=== PATIENT | female | born 1935 | race Caucasian/White ===

== ENCOUNTER 2016-12-09 08:52 | Outpatient (CLI) | payer MEDICARE ==
[2016-01-07 11:37] VITALS: O2SAT 97
== END 2016-12-09 08:53 | disposition home or self-care (01) | DRG 566 ==
LOC: CONVCARE 08:52
PROVIDERS: ATTEND Orthopaedic Surgery
DX: Z96.651 Presence of right artificial knee joint (principal)
CPT/HCPCS: 73562

== ENCOUNTER 2017-11-11 09:59 | Outpatient (CLI) | payer MEDICARE, MEDICAID ==
[2016-01-07 11:37] VITALS: O2SAT 97
== END 2017-11-11 10:00 | disposition home or self-care (01) | DRG 556 ==
LOC: CONVCARE 09:59
PROVIDERS: ATTEND Orthopaedic Surgery
DX: M25.562 Pain in left knee (principal); M17.12 Unilateral primary osteoarthritis, left knee
CPT/HCPCS: 73564

== ENCOUNTER 2018-02-16 05:20 | Inpatient (IN) | payer MEDICARE, MEDICAID ==
[2018-02-16] MEDS ORDERED: LACTATED RINGERS 1,000 ML IV ONE (06:00)
[2018-02-16] MEDS ORDERED: SCOPOLAMINE 1.5MG PATCH TD SCH (06:00)
[2018-02-16] MEDS ORDERED: LACTATED RINGERS 1,000 ML IV SCH (07:00)
[2018-02-16] MEDS ORDERED: ONDANSETRON HCL 4 MG/2 ML SOL ONE (07:22)
[2018-02-16] MEDS ORDERED: PROPOFOL 500 MG/50 ML EMU IV ONE ×2 (07:22→09:06)
[2018-02-16] MEDS ORDERED: FENTANYL 100MCG/2ML SOL ONE (07:23)
[2018-02-16] MEDS ORDERED: CEFAZOLIN SODIUM 1 GM PDS ONE ×3 (07:25→23:39)
[2018-02-16] MEDS ORDERED: TRANEXAMIC ACID 100 MG/ML SOL ONE (07:25)
[2018-02-16] MEDS ORDERED: SODIUM CHLORIDE 20 ML 20 ML ONE (07:25)
[2018-02-16] MEDS ORDERED: BUPIVACAINE/EPI 0.5% 10 ML SOL INFIL ONE (07:52)
[2018-02-16] MEDS ORDERED: MIDAZOLAM 2 MG/2 ML SOL ONE (08:06)
[2018-02-16] MEDS ORDERED: CEFAZOLIN SODIUM 1 GM PDS IV ONE (08:28)
[2018-02-16] MEDS: BUPIVACAINE LIPOSOME 20 ML SUS ONE ×2 (09:10→09:40)
[2018-02-16] MEDS ORDERED: FLEET ENEMA PR PRN (09:47)
[2018-02-16] MEDS ORDERED: ONDANSETRON HCL 4 MG/2 ML SOL IV PRN (09:47)
[2018-02-16] MEDS ORDERED: MAGNESIUM HYDROXIDE 30 ML SUS PO PRN (09:47)
[2018-02-16] MEDS ORDERED: SODIUM CHLORIDE 0.9% 500 ML 500 ML IV PRN (09:47)
[2018-02-16] MEDS ORDERED: ALUMINUM/MAGNESIUM 30 ML SUS PO PRN (09:47)
[2018-02-16] MEDS ORDERED: DIPHENHYDRAMINE 25 MG CAP PO PRN (09:47)
[2018-02-16] MEDS ORDERED: BISACODYL 10 MG SUP PR PRN (09:47)
[2018-02-16] MEDS ORDERED: MORPHINE SULFATE 10 MG/ML SOL IV PRN (09:47)
[2018-02-16] MEDS: LACTATED RINGERS 1,000 ML IV SCH ×2 (11:15→18:23)
[2018-02-16] MEDS: SODIUM CHLORIDE 0.9% FLUSH 10 ML SOL IV SCH ×2 (12:10→18:23)
[2018-02-16] MEDS: APAP/HYDROCODONE 325/5 TAB PO PRN ×4 (12:19→23:29)
[2018-02-16] MEDS: DIAZEPAM 5 MG TAB PO PRN (13:29)
[2018-02-16] MEDS ORDERED: CEFAZOLIN SODIUM 1 GM PDS 2 GM in SODIUM CHLORIDE 0.9% 100 ML 100 ML IV SCH (15:50)
[2018-02-16] MEDS ORDERED: SODIUM CHLORIDE 0.9% 100 ML 100 ML IV ONE ×2 (16:26→23:39)
[2018-02-16] MEDS: CEFAZOLIN SODIUM 1 GM PDS 2 GM in SODIUM CHLORIDE 0.9% 100 ML 100 ML IV SCH (16:36)
[2018-02-16] MEDS: ONDANSETRON 4 MG ODT BU PRN (16:38)
[2018-02-16] MEDS: METOPROLOL SUCCINATE 50 MG ER TAB PO SCH (20:52)
[2018-02-16] MEDS: SENNOSIDES A AND B 8.6 MG TAB PO SCH (20:52)
[2018-02-17] MEDS: CEFAZOLIN SODIUM 1 GM PDS 2 GM in SODIUM CHLORIDE 0.9% 100 ML 100 ML IV SCH (00:05)
[2018-02-17] MEDS: APAP/HYDROCODONE 325/5 TAB PO PRN ×6 (00:09→23:05)
[2018-02-17] MEDS: DIAZEPAM 5 MG TAB PO PRN ×2 (00:09→14:04)
[2018-02-17] MEDS: SODIUM CHLORIDE 0.9% FLUSH 10 ML SOL IV SCH ×3 (01:55→20:24)
[2018-02-17] MEDS: LACTATED RINGERS 1,000 ML IV SCH (04:49)
[2018-02-17 07:13] LABS: HEMOGLOBIN 10.7 gm/dl (12.0-15.5); MEAN CORPUSCULAR HGB CONC 33.8 gm/dl (32.0-36.0)
[2018-02-17] MEDS: RIVAROXABAN 10 MG TAB PO SCH (08:23)
[2018-02-17] MEDS ORDERED: AMLODIPINE 5 MG TAB PO SCH (09:00)
[2018-02-17] MEDS: SENNOSIDES A AND B 8.6 MG TAB PO SCH (20:24)
[2018-02-17] MEDS: METOPROLOL SUCCINATE 50 MG ER TAB PO SCH (20:25)
[2018-02-18] MEDS: APAP/HYDROCODONE 325/5 TAB PO PRN ×5 (03:25→20:19)
[2018-02-18 07:39] LABS: HEMOGLOBIN 9.6 gm/dl (12.0-15.5); MEAN CORPUSCULAR HEMOGLOBIN 30.5 pg (27.0-32.0); MEAN CORPUSCULAR HGB CONC 33.4 gm/dl (32.0-36.0)
[2018-02-18] MEDS: RIVAROXABAN 10 MG TAB PO SCH (08:37)
[2018-02-18] MEDS: DIAZEPAM 5 MG TAB PO PRN ×2 (08:38→19:25)
[2018-02-18] MEDS ORDERED: AMLODIPINE 5 MG TAB ONE (11:18)
[2018-02-18] MEDS: AMLODIPINE 5 MG TAB PO SCH (11:24)
[2018-02-18] MEDS: METOPROLOL SUCCINATE 50 MG ER TAB PO SCH (20:16)
[2018-02-18] MEDS: SENNOSIDES A AND B 8.6 MG TAB PO SCH (20:16)
[2018-02-19] MEDS: APAP/HYDROCODONE 325/5 TAB PO PRN ×5 (00:30→21:12)
[2018-02-19 07:30] LABS: HEMOGLOBIN 9.2 gm/dl (12.0-15.5); MEAN CORPUSCULAR HEMOGLOBIN 30.4 pg (27.0-32.0); MEAN CORPUSCULAR HGB CONC 33.4 gm/dl (32.0-36.0)
[2018-02-19] MEDS: AMLODIPINE 5 MG TAB PO SCH (09:26)
[2018-02-19] MEDS: RIVAROXABAN 10 MG TAB PO SCH (09:26)
[2018-02-19] MEDS: ONDANSETRON 4 MG ODT BU PRN (09:53)
[2018-02-19] MEDS: DIAZEPAM 5 MG TAB PO PRN (18:34)
[2018-02-19] MEDS: SENNOSIDES A AND B 8.6 MG TAB PO SCH (21:13)
[2018-02-19] MEDS: METOPROLOL SUCCINATE 50 MG ER TAB PO SCH (21:13)
[2018-02-20] MEDS: APAP/HYDROCODONE 325/5 TAB PO PRN ×3 (01:15→10:11)
[2018-02-20 07:31] LABS: CALCIUM 7.7 mg/dl (8.5-10.1); CARBON DIOXIDE 29.6 mEq/L (21-32); CREATININE 0.71 mg/dl (0.60-1.00); POTASSIUM 3.9 mMol/L (3.5-5.1)
[2018-02-20 07:37] LABS: BASOPHILS % (AUTO) 1 % (0-3); EOSINOPHILS % (AUTO) 3 % (0-9); HEMATOCRIT 28 % (35-47); HEMOGLOBIN 9.1 gm/dl (12.0-15.5); LYMPHOCYTES % (AUTO) 29.1 % (10-50); MEAN CORPUSCULAR HGB CONC 32.7 gm/dl (32.0-36.0); MEAN CORPUSCULAR VOLUME 92 fL (81-99); MONOCYTES % (AUTO) 6.9 % (0-12); NEUTROPHILS % (AUTO) 60.3 % (37-80)
[2018-02-20 08:16] VITALS: BP 120/70; PULSE 77; RESP 16; O2SAT 99
[2018-02-20] MEDS: RIVAROXABAN 10 MG TAB PO SCH (08:17)
[2018-02-20] MEDS: AMLODIPINE 5 MG TAB PO SCH (08:18)
[2018-02-20 09:21] VITALS: TEMP 98.8
== END 2018-02-20 13:05 | disposition swing bed (61) | DRG 517 ==
LOC: ACUTE CARE 05:20 → UNDOADMIN 05:20 → ACUTE CARE 06:31 → UNDOADMIN 06:31
PROVIDERS: ADMIT Orthopaedic Surgery; ATTEND Orthopaedic Surgery
PROC: 0SUD09C Supplement Left Knee Joint with Liner, Patellar Surface, Open Approach (ICD-10-PCS; 2018-02-16)
PROC: F01ZDFZ Gait and/or Balance Assessment using Assistive, Adaptive, Supportive or Protective Equipment (ICD-10-PCS; 2018-02-16)
PROC: F01ZBFZ Bed Mobility Assessment using Assistive, Adaptive, Supportive or Protective Equipment (ICD-10-PCS; 2018-02-16)
PROC: 0SUU09Z Supplement Left Knee Joint, Femoral Surface with Liner, Open Approach (ICD-10-PCS; principal; 2018-02-16 08:00)
PROC: F02Z1ZZ Dressing Assessment (ICD-10-PCS; 2018-02-17)
PROC: F02Z3ZZ Grooming/Personal Hygiene Assessment (ICD-10-PCS; 2018-02-17)
DX: M17.12 Unilateral primary osteoarthritis, left knee (principal); I10 Essential (primary) hypertension; Z96.652 Presence of left artificial knee joint
CPT/HCPCS: 36415; 51798; 73560; 80048; 85025; 85027; 94150; 99070; J0690; J2250; J2270; J2405; J3010; A6232; A9270-GY; J2704; J3490; Q3014

== ENCOUNTER 2018-02-20 12:14 | Inpatient (IN) | payer MEDICARE, MEDICAID ==
[2018-02-20] MEDS ORDERED: BISACODYL 5 MG TAB ECT PO ONE (14:03)
[2018-02-20] MEDS: APAP/HYDROCODONE 325/5 TAB PO PRN ×2 (14:54→20:57)
[2018-02-20] MEDS: ONDANSETRON 4 MG ODT BU PRN (17:43)
[2018-02-20] MEDS: METOPROLOL SUCCINATE 50 MG ER TAB PO SCH (20:57)
[2018-02-21] MEDS: APAP/HYDROCODONE 325/5 TAB PO PRN ×5 (04:57→20:40)
[2018-02-21] MEDS: AMLODIPINE 5 MG TAB PO SCH (08:27)
[2018-02-21] MEDS: RIVAROXABAN 10 MG TAB PO SCH (08:27)
[2018-02-21 11:12] VITALS: TEMP 98.2
[2018-02-21] MEDS: METOPROLOL SUCCINATE 50 MG ER TAB PO SCH (20:18)
[2018-02-22] MEDS: APAP/HYDROCODONE 325/5 TAB PO PRN ×6 (01:20→20:11)
[2018-02-22] MEDS: AMLODIPINE 5 MG TAB PO SCH (08:59)
[2018-02-22] MEDS: RIVAROXABAN 10 MG TAB PO SCH (08:59)
[2018-02-22] MEDS ORDERED: BISACODYL 5 MG TAB ECT PO ONE (09:00)
[2018-02-22] MEDS: POLYETHYLENE GLYCOL 17 GM/1 TBS PDS PO SCH (09:55)
[2018-02-22] MEDS ORDERED: FLEET ENEMA PR PRN (14:31)
[2018-02-22] MEDS: SENNOSIDES A AND B 8.6 MG TAB PO SCH (20:11)
[2018-02-22] MEDS: METOPROLOL SUCCINATE 50 MG ER TAB PO SCH (20:11)
[2018-02-23] MEDS: APAP/HYDROCODONE 325/5 TAB PO PRN ×3 (00:08→08:45)
[2018-02-23] MEDS: ONDANSETRON 4 MG ODT BU PRN ×2 (03:05→09:07)
[2018-02-23] MEDS: POLYETHYLENE GLYCOL 17 GM/1 TBS PDS PO SCH (08:35)
[2018-02-23] MEDS: RIVAROXABAN 10 MG TAB PO SCH (08:35)
[2018-02-23] MEDS: SENNOSIDES A AND B 8.6 MG TAB PO SCH (08:35)
[2018-02-23] MEDS: AMLODIPINE 5 MG TAB PO SCH (08:35)
[2018-02-23 08:38] VITALS: BP 116/68; PULSE 74; RESP 18; O2SAT 96
== END 2018-02-23 10:55 | disposition home or self-care (01) | DRG 561 ==
LOC: ACUTE CARE 13:10
PROVIDERS: ADMIT Family Medicine; ATTEND Family Medicine
PROC: F01ZDFZ Gait and/or Balance Assessment using Assistive, Adaptive, Supportive or Protective Equipment (ICD-10-PCS; principal; 2018-02-20)
PROC: F01ZBZZ Bed Mobility Assessment (ICD-10-PCS; 2018-02-20)
PROC: F01ZCZZ Transfer Assessment (ICD-10-PCS; 2018-02-20)
PROC: F02Z1ZZ Dressing Assessment (ICD-10-PCS; 2018-02-21)
PROC: F02Z3ZZ Grooming/Personal Hygiene Assessment (ICD-10-PCS; 2018-02-21)
PROC: F02Z0ZZ Bathing/Showering Assessment (ICD-10-PCS; 2018-02-21)
DX: Z47.1 Aftercare following joint replacement surgery (principal); G89.18 Other acute postprocedural pain; I10 Essential (primary) hypertension; Z96.652 Presence of left artificial knee joint; K59.00 Constipation, unspecified
CPT/HCPCS: A9270-GY

== ENCOUNTER 2018-03-30 07:19 | Outpatient (CLI) | payer MEDICARE, MEDICAID ==
[2018-02-21 11:12] VITALS: O2SAT 95
== END 2018-03-30 07:20 | disposition home or self-care (01) | DRG 561 ==
LOC: CONVCARE 07:19
PROVIDERS: ATTEND Orthopaedic Surgery
DX: Z47.1 Aftercare following joint replacement surgery (principal); Z96.652 Presence of left artificial knee joint
CPT/HCPCS: 73562

== ENCOUNTER 2018-06-29 22:39 | Observation (INO) | payer MEDICARE ==
[2018-06-29] MEDS ORDERED: SODIUM CHLORIDE 0.9% 1000ML 1,000 ML IV ONE (23:09)
[2018-06-29 23:19] LABS: BASOPHILS % (AUTO) 1 % (0-3); EOSINOPHILS % (AUTO) 4 % (0-9); HEMATOCRIT 38 % (35-47); HEMOGLOBIN 12.1 gm/dl (12.0-15.5); LYMPHOCYTES % (AUTO) 44.2 % (10-50); MEAN CORPUSCULAR HEMOGLOBIN 29.6 pg (27.0-32.0); MEAN CORPUSCULAR HGB CONC 31.7 gm/dl (32.0-36.0); MEAN CORPUSCULAR VOLUME 93 fL (81-99); MONOCYTES % (AUTO) 6.4 % (0-12); NEUTROPHILS % (AUTO) 44.9 % (37-80)
[2018-06-29 23:30] LABS: APPEARANCE,URINE Clear; BILIRUBIN,URINE NEGATIVE (NEGATIVE); COLOR,URINE Yellow; GLUCOSE, URINE (UA) NEGATIVE (NEGATIVE); KETONES,URINE NEGATIVE (NEGATIVE); LEUKOCYTE ESTERASE ,URINE TRACE (NEGATIVE); NITRATE,URINE NEGATIVE (NEGATIVE); OCCULT BLOOD,URINE TRACE INTACT (NEG-TRACE); UROBILINOGEN,URINE 0.2 (0.2-1.0 EU)
[2018-06-29 23:36] LABS: INR 0.92 (0.86-1.12)
[2018-06-29 23:44] LABS: BACTERIA 1+ (< 1+); CRYSTALS NEGATIVE (0-3 AVE/HPF); RBC,URINE 0-2 (0-3AV/HPF)
[2018-06-29 23:44] LABS: BLOOD UREA NITROGEN 19 mg/dl (7-18); CALCIUM 8.2 mg/dl (8.5-10.1); CARBON DIOXIDE 27.6 mEq/L (21-32); CHLORIDE 103 mMol/L (98-107); CREATININE 0.88 mg/dl (0.60-1.00); GLUCOSE 99 mg/dl (74-106); MAGNESIUM 2.1 mg/dl (1.8-2.4); POTASSIUM 4.1 mMol/L (3.5-5.1); SODIUM 138 mMol/L (136-145); TROP I < 0.017 ng/ml (0.000-0.056)
[2018-06-29] MEDS ORDERED: CEFTRIAXONE 1 GM PDS 1 GM in SODIUM CHLORIDE 0.9% 50 ML 50 ML IV ONE (23:54)
[2018-06-29] MEDS ORDERED: CEFTRIAXONE 1 GM PDS ONE (23:56)
[2018-06-30] MEDS ORDERED: DILTIAZEM 5 MG/ML SOL IV ONE ×2 (01:21→01:25)
[2018-06-30] MEDS ORDERED: LORAZEPAM 0.5 MG TAB PO ONE (01:36)
[2018-06-30] MEDS ORDERED: LORAZEPAM 0.5 MG TAB ONE (01:38)
[2018-06-30 02:46] VITALS: O2SAT 97
[2018-06-30 07:10] LABS: CALCIUM 7.7 mg/dl (8.5-10.1); CARBON DIOXIDE 26.2 mEq/L (21-32); CREATININE 0.67 mg/dl (0.60-1.00); POTASSIUM 4.1 mMol/L (3.5-5.1)
[2018-06-30] MEDS ORDERED: APAP/HYDROCODONE 325/5 TAB PO PRN (08:14)
[2018-06-30] MEDS ORDERED: APAP/HYDROCODONE 325/5 TAB PO SCH (09:00)
[2018-06-30] MEDS ORDERED: SODIUM CHLORIDE 0.9% FLUSH 10 ML SOL IV SCH (09:00)
[2018-06-30] MEDS ORDERED: METOPROLOL TARTRATE 50 MG TAB PO SCH (09:00)
[2018-06-30] MEDS ORDERED: CEFDINIR 300 MG CAP PO SCH (09:00)
[2018-06-30] MEDS ORDERED: METOPROLOL SUCCINATE 50 MG ER TAB PO SCH (09:00)
[2018-06-30] MEDS ORDERED: AMLODIPINE 5 MG TAB PO SCH (09:00)
[2018-06-30 11:42] VITALS: BP 108/63; PULSE 61; RESP 20; TEMP 98
[2018-06-30] MEDS ORDERED: CEFTRIAXONE 1 GM PDS 1 GM in SODIUM CHLORIDE 0.9% 50 ML 50 ML IV SCH (23:30)
== END 2018-06-30 12:45 | disposition home or self-care (01) | DRG 880 ==
LOC: ED 22:39 → ACUTE CARE 06-30 02:21
PROVIDERS: ADMIT Family Medicine; ATTEND Family Medicine
DX: F41.1 Generalized anxiety disorder (principal); N30.00 Acute cystitis without hematuria; R00.0 Tachycardia, unspecified; R50.9 Fever, unspecified; I10 Essential (primary) hypertension
CPT/HCPCS: 36415; 80048; 81001; 83735; 83880; 84443; 84484; 85025; 85610; 87077; 87088; 87186; 93005; 93012; 96365; 96374; 99070; 99235; 99285; J0696; A9270-GY; J3490

== ENCOUNTER 2018-07-21 02:27 | Emergency (ER) | payer MEDICARE ==
[2018-07-21] MEDS ORDERED: NITROGLYCERIN 0.4 MG TAB SL PRN (02:40)
[2018-07-21] MEDS ORDERED: SODIUM CHLORIDE 0.9% FLUSH 10 ML SOL IV PRN (02:40)
[2018-07-21] MEDS ORDERED: METOPROLOL TARTRATE 5 MG/5 ML SOL IV ONE ×2 (02:49→02:55)
[2018-07-21 02:57] LABS: BASOPHILS % (AUTO) 1 % (0-3); EOSINOPHILS % (AUTO) 3 % (0-9); HEMATOCRIT 40 % (35-47); HEMOGLOBIN 12.8 gm/dl (12.0-15.5); LYMPHOCYTES % (AUTO) 33.5 % (10-50); MEAN CORPUSCULAR HEMOGLOBIN 29.8 pg (27.0-32.0); MEAN CORPUSCULAR HGB CONC 32.1 gm/dl (32.0-36.0); MEAN CORPUSCULAR VOLUME 93 fL (81-99); MONOCYTES % (AUTO) 8.2 % (0-12); NEUTROPHILS % (AUTO) 54.6 % (37-80)
[2018-07-21 03:00] VITALS: TEMP 97.8
[2018-07-21] MEDS ORDERED: METOPROLOL TARTRATE 25 MG TAB PO ONE (03:11)
[2018-07-21 03:12] LABS: BLOOD UREA NITROGEN 17 mg/dl (7-18); CALCIUM 8.8 mg/dl (8.5-10.1); CARBON DIOXIDE 25.6 mEq/L (21-32); CHLORIDE 101 mMol/L (98-107); CREATINE KINASE 37 U/L (26-192); CREATININE 0.77 mg/dl (0.60-1.00); GLUCOSE 114 mg/dl (74-106); POTASSIUM 3.9 mMol/L (3.5-5.1); SODIUM 137 mMol/L (136-145); TROP I < 0.017 ng/ml (0.000-0.056)
[2018-07-21] MEDS ORDERED: METOPROLOL TARTRATE 25 MG TAB ONE (03:12)
[2018-07-21 04:03] VITALS: BP 142/83; PULSE 93; RESP 18; O2SAT 98
== END 2018-07-21 03:30 | disposition home or self-care (01) | DRG 310 ==
LOC: ED 02:27
DX: R00.0 Tachycardia, unspecified (principal)
CPT/HCPCS: 80048; 82550; 84484; 85025; 93005; 96374; 99284; 99285; A9270-GY; J3490

== ENCOUNTER 2018-10-12 10:40 | Outpatient (CLI) | payer MEDICARE, MEDICAID ==
[2018-07-21 04:03] VITALS: O2SAT 98
[2018-10-12 11:04] LABS: BASOPHILS % (AUTO) 1 % (0-3); EOSINOPHILS % (AUTO) 3 % (0-9); HEMATOCRIT 37 % (35-47); HEMOGLOBIN 11.5 gm/dl (12.0-15.5); LYMPHOCYTES % (AUTO) 25.3 % (10-50); MEAN CORPUSCULAR HEMOGLOBIN 29.2 pg (27.0-32.0); MEAN CORPUSCULAR HGB CONC 31.4 gm/dl (32.0-36.0); MEAN CORPUSCULAR VOLUME 93 fL (81-99); MONOCYTES % (AUTO) 7.8 % (0-12); NEUTROPHILS % (AUTO) 63.2 % (37-80)
[2018-10-12 13:11] LABS: SEDIMENTATION RATE 58 mm/hr (0-20)
== END 2018-10-12 10:41 | disposition home or self-care (01) | DRG 556 ==
LOC: CONVCARE 10:40
PROVIDERS: ATTEND Orthopaedic Surgery
DX: M25.562 Pain in left knee (principal); Z96.653 Presence of artificial knee joint, bilateral
CPT/HCPCS: 36415; 85025; 85651